=== PATIENT | female | born 1975 | race Caucasian/White ===

== ENCOUNTER → 2016-09-07 | Outpatient (REF) | payer BC ==
[2016-09-07 13:44] LABS: PERCENT SATURATION 9.2 % (13.2-37.4)
== END ==
LOC: M LAB REF 12:33
PROVIDERS: ATTEND Internal Medicine Medical Oncology
DX: C81.90 Hodgkin lymphoma, unspecified, unspecified site (principal)

== ENCOUNTER → 2017-02-25 | Outpatient (CLI) | payer BC ==
[2017-02-25 18:29] LABS: ALBUMIN 3.1 GM/DL (3.2-5.2); ALBUMIN/GLOBULIN RATIO 0.74 (1.00-1.93); ALKALINE PHOSPHATASE 95 U/L (45-117); ALT/SGPT 18 U/L (12-78); ANION GAP 7 MEQ/L (8-16); AST/SGOT 11 U/L (7-37); BILIRUBIN,TOTAL 0.5 MG/DL (0.2-1.0); BLOOD UREA NITROGEN 14 MG/DL (7-18); CALCIUM LEVEL 8.4 MG/DL (8.5-10.1); CARBON DIOXIDE LEVEL 26 MEQ/L (21-32); CHLORIDE LEVEL 104 MEQ/L (98-107); CHOLESTEROL LEVEL 208 MG/DL (<200); CREATININE FOR GFR 0.88 MG/DL (0.55-1.02); GLOMERULAR FILTRATION RATE > 60.0 (>58); GLUCOSE, FASTING 83 MG/DL (70-105); POTASSIUM SERUM 4.4 MEQ/L (3.5-5.1); SODIUM LEVEL 137 MEQ/L (136-145); TOTAL PROTEIN 7.3 GM/DL (6.4-8.2); TRIGLYCERIDES LEVEL 193 MG/DL (<150)
== END ==
LOC: M SMT 11:29
PROVIDERS: ATTEND Family Medicine
DX: Z00.00 Encounter for general adult medical examination without abnormal findings (principal); E03.9 Hypothyroidism, unspecified; E78.00 Pure hypercholesterolemia, unspecified

== ENCOUNTER → 2017-03-07 | Outpatient (REF) | payer BC | LOC: M SFHCWAGY 08:47 | PROVIDERS: ATTEND Nurse Practitioner Women's Health | DX: Z12.4 Encounter for screening for malignant neoplasm of cervix (principal) ==

== ENCOUNTER → 2017-03-07 | Outpatient (CLI) | payer BC ==
--- NOTE | 2017-03-07 10:15 | REPMRS ---
Patient History The patient states she had a clinical breast exam in 02/2017. Patient had previous chest radiation therapy at age 29, has history of other cancer at age 29, had previous chemotherapy at age 29, and had first child at age 30. Family history of prostate cancer in father at age 50 or over, breast cancer in paternal aunt at age 50 or over, and breast cancer in maternal grandmother at age 50 or over. Digital Woman Screen Mammo: March 07, 2017 - Exam #: [id number] Bilateral CC and MLO view(s) were taken. Technologist: Chrissy Oshea, Technologist Prior study comparison: March 04, 2016, digital woman screen mammo performed at [facility]. March 06, 2015, digital woman screen mammo performed at [facility]. FINDINGS: There are scattered fibroglandular densities. There has been no change in the appearance of the mammogram from the prior studies. There is a mild amount of residual fibroglandular tissue which is fairly symmetric. There is no interval development of dominant mass, architectural distortion, or clustered microcalcification suggestive of malignancy. ASSESSMENT: BI-RADS/ACR category 1 mammogram. Negative. Recommendation Routine screening mammogram in 1 year (for women over age 40). This mammogram was interpreted with the aid of an FDA-approved computer-aided dectection system. Electronically Signed By: Philip Escalante MD 03/07/17 1014
== END ==
LOC: M WHC 08:51
PROVIDERS: ATTEND Nurse Practitioner Women's Health
DX: Z12.31 Encounter for screening mammogram for malignant neoplasm of breast (principal)

== ENCOUNTER → 2017-04-07 | Outpatient (REF) | payer BC ==
[2017-04-07 13:59] LABS: PERCENT SATURATION 9.7 % (13.2-45.0)
== END ==
LOC: M LAB REF 13:16
PROVIDERS: ATTEND Internal Medicine Medical Oncology
DX: C81.99 Hodgkin lymphoma, unspecified, extranodal and solid organ sites (principal); D50.9 Iron deficiency anemia, unspecified

== ENCOUNTER → 2017-10-20 | Outpatient (REF) | payer BC ==
[2017-10-20 17:16] LABS: FERRITIN 12 NG/ML (8-252); IRON (FE) 51 UG/DL (50-170); PERCENT SATURATION 14.1 % (13.2-45.0); TOTAL IRON BINDING CAPACITY 362 UG/DL (250-450)
== END ==
LOC: M LAB REF 16:24
DX: D50.9 Iron deficiency anemia, unspecified (principal)
CPT/HCPCS: 83550

== ENCOUNTER → 2017-12-31 | Outpatient (CLI) | payer BC ==
[2017-12-31 17:50] LABS: BASO % 0.5 % (0.0-1.0); EOS # 0.2 10^3/uL (0.0-0.50); EOS % 2.4 % (0.0-3.0); HEMOGLOBIN 13.4 g/dl (12.0-15.5); IMMATURE GRANULOCYTE % 0.2 % (0-3.0); LYMPH # 1.9 10^3/uL (1.5-4.5); LYMPH % 30.4 % (24.0-44.0); MEAN CORPUSCULAR HEMOGLOBIN 28.5 pg (27.0-33.0); MEAN CORPUSCULAR HGB CONC 30.5 g/dl (32.0-36.5); MEAN CORPUSCULAR VOLUME 93.4 fl (80.0-96.0); MONO # 0.4 10^3/uL (0.0-0.8); MONO % 6.4 % (0.0-5.0); NEUTROPHILS # 3.8 10^3/uL (1.8-7.7); NEUTROPHILS % 60.1 % (36.0-66.0); PLATELET COUNT, AUTOMATED 101 10^3/uL (150-450); RED BLOOD COUNT 4.71 10^6/uL (4.00-5.40); RED CELL DISTRIBUTION WIDTH 14.7 % (11.5-14.5); WHITE BLOOD COUNT 6.2 10^3/uL (4.0-10.0)
[2017-12-31 18:20] LABS: ALBUMIN 3.2 GM/DL (3.2-5.2); ALBUMIN/GLOBULIN RATIO 0.86 (1.00-1.93); ALKALINE PHOSPHATASE 78 U/L (45-117); ALT/SGPT 22 U/L (12-78); ANION GAP 7 MEQ/L (8-16); AST/SGOT 17 U/L (7-37); BILIRUBIN,TOTAL 0.4 MG/DL (0.2-1.0); BLOOD UREA NITROGEN 12 MG/DL (7-18); CALCIUM LEVEL 8.5 MG/DL (8.5-10.1); CARBON DIOXIDE LEVEL 27 MEQ/L (21-32); CHLORIDE LEVEL 104 MEQ/L (98-107); CHOLESTEROL LEVEL 195 MG/DL (<200); CHOLESTEROL RISK RATIO 5.735 (<5); CREATININE FOR GFR 0.91 MG/DL (0.55-1.30); FREE T4 0.95 NG/DL (0.76-1.46); GLOMERULAR FILTRATION RATE > 60.0 (>58); GLUCOSE, FASTING 99 MG/DL (70-100); HDL CHOLESTEROL 34 MG/DL (>40); LDL CHOLESTEROL 102 MG/DL (<100); NON-HDL-C 161 MG/DL; POTASSIUM SERUM 4.7 MEQ/L (3.5-5.1); SODIUM LEVEL 138 MEQ/L (136-145); TOTAL PROTEIN 6.9 GM/DL (6.4-8.2); TRIGLYCERIDES LEVEL 293 MG/DL (<150)
[2018-01-02 09:30] LABS: TOTAL 25(OH) VITAMIN D 44.5 NG/ML (30.0-100.0)
== END ==
LOC: M WUC 09:21
DX: E03.9 Hypothyroidism, unspecified (principal); E78.00 Pure hypercholesterolemia, unspecified; D50.8 Other iron deficiency anemias; E55.9 Vitamin D deficiency, unspecified
CPT/HCPCS: 84443

== ENCOUNTER → 2018-03-13 | Outpatient (CLI) | payer BC | LOC: M WHC 08:03 | DX: Z12.31 Encounter for screening mammogram for malignant neoplasm of breast (principal) | CPT/HCPCS: 77067 ==

== ENCOUNTER → 2018-05-22 | Outpatient (CLI) | payer BC ==
[~2018-05-22] MED LIST: FERR1TAB8 PO; FLUO20CA8 PO; LEVO88TA3 PO; RANI1SYP PO
[2018-05-22 13:51] LABS: BASO # 0.1 10^3/uL (0.0-0.2); BASO % 0.6 % (0.0-1.0); EOS # 0.2 10^3/uL (0.0-0.50); EOS % 2.6 % (0.0-3.0); HEMATOCRIT 43.8 % (36.0-47.0); HEMOGLOBIN 14.1 g/dl (12.0-15.5); LYMPH # 2.1 10^3/uL (1.5-4.5); LYMPH % 26.6 % (24.0-44.0); MEAN CORPUSCULAR HGB CONC 32.2 g/dl (32.0-36.5); MEAN CORPUSCULAR VOLUME 90.1 fl (80.0-96.0); MONO # 0.5 10^3/uL (0.0-0.8); MONO % 5.9 % (0.0-5.0); NEUTROPHILS # 5.1 10^3/uL (1.8-7.7); NEUTROPHILS % 63.8 % (36.0-66.0); PLATELET COUNT, AUTOMATED 283 10^3/uL (150-450); RED BLOOD COUNT 4.86 10^6/uL (4.00-5.40)
[2018-05-22 14:02] LABS: ALBUMIN 3.6 GM/DL (3.2-5.2); ALT/SGPT 31 U/L (12-78); BILIRUBIN,TOTAL 0.3 MG/DL (0.2-1.0); BLOOD UREA NITROGEN 13 MG/DL (7-18); CALCIUM LEVEL 9.1 MG/DL (8.5-10.1); CARBON DIOXIDE LEVEL 28 MEQ/L (21-32); CHLORIDE LEVEL 102 MEQ/L (98-107); FERRITIN 37 NG/ML (8-252); GLOMERULAR FILTRATION RATE > 60.0 (>58); GLUCOSE, FASTING 108 MG/DL (70-100); IRON (FE) 49 UG/DL (50-170); PERCENT SATURATION 13.6 % (13.2-45.0); POTASSIUM SERUM 4.4 MEQ/L (3.5-5.1); SODIUM LEVEL 137 MEQ/L (136-145); TOTAL IRON BINDING CAPACITY 359 UG/DL (250-450); TOTAL PROTEIN 7.6 GM/DL (6.4-8.2)
== END ==
LOC: M SMT 07:53
PROVIDERS: ATTEND Internal Medicine Medical Oncology
DX: Z85.71 Personal history of Hodgkin lymphoma (principal); D50.0 Iron deficiency anemia secondary to blood loss (chronic)

== ENCOUNTER → 2018-09-13 | Outpatient (CLI) | payer BC ==
[~2018-09-13] MED LIST changes: +PROHANCE 279.3MG/ML 15ML VIAL (A9576) As Ordered ONE; +PROHANCE 279.3MG/ML 5ML VIAL (A9576) As Ordered ONE
== END ==
LOC: M RAD 08:46
PROVIDERS: ATTEND Nurse Practitioner Women's Health
DX: Z12.31 Encounter for screening mammogram for malignant neoplasm of breast (principal); Z80.3 Family history of malignant neoplasm of breast; Z53.29 Procedure and treatment not carried out because of patient's decision for other reasons
CPT/HCPCS: A9576 ×2

== ENCOUNTER 2019-01-19 21:53 | Emergency (ER) | payer BC ==
[~2019-01-19] VITALS: Ht 167.6 cm; Wt 122.7 kg
[~2019-01-19 21:53] MED LIST changes: +FERR150C PO; -PROHANCE 279.3MG/ML 15ML VIAL (A9576) As Ordered ONE; -PROHANCE 279.3MG/ML 5ML VIAL (A9576) As Ordered ONE
[2019-01-19] MEDS ORDERED: IBUP200T50 PO (22:01)
[2019-01-19] MEDS ORDERED: ACET-861 PO (22:01)
[2019-01-19 22:36] VITALS: BP 165/86
[2019-01-19] MEDS ORDERED: CLINDAMYCIN 150 MG CAP PO ONE (23:00)
[2019-01-19] MEDS ORDERED: CLEO300C2 PO (23:01)
== END 2019-01-19 23:11 | disposition home or self-care (01) ==
LOC: M ED 21:53
DX: K04.7 Periapical abscess without sinus (principal); K02.9 Dental caries, unspecified; H92.02 Otalgia, left ear; F17.210 Nicotine dependence, cigarettes, uncomplicated; D86.9 Sarcoidosis, unspecified; E03.9 Hypothyroidism, unspecified; Z88.0 Allergy status to penicillin; Z88.6 Allergy status to analgesic agent; Z88.8 Allergy status to other drugs, medicaments and biological substances; Z91.018 Allergy to other foods; Z79.899 Other long term (current) drug therapy

== ENCOUNTER 2019-01-21 20:27 | Emergency (ER) | payer BC ==
[~2019-01-21] VITALS: Ht 167.6 cm; Wt 124.0 kg
[~2019-01-21 20:27] MED LIST changes: +ACET-861 PO; +CLEO300C2 PO; +IBUP200T50 PO
[2019-01-21 21:20] LABS: HEMATOCRIT 41.3 % (36.0-47.0); HEMOGLOBIN 13.4 g/dl (12.0-15.5); MEAN CORPUSCULAR HEMOGLOBIN 29.3 pg (27.0-33.0); MEAN CORPUSCULAR HGB CONC 32.4 g/dl (32.0-36.5); MEAN CORPUSCULAR VOLUME 90.4 fl (80.0-96.0); PLATELET COUNT, AUTOMATED 291 10^3/uL (150-450); RED BLOOD COUNT 4.57 10^6/uL (4.00-5.40); WHITE BLOOD COUNT 11.7 10^3/uL (4.0-10.0)
[2019-01-21 21:38] LABS: BLOOD UREA NITROGEN 8 MG/DL (7-18); CALCIUM LEVEL 8.9 MG/DL (8.5-10.1); CARBON DIOXIDE LEVEL 28 MEQ/L (21-32); CHLORIDE LEVEL 104 MEQ/L (98-107); CREATININE FOR GFR 0.98 MG/DL (0.55-1.30); GLOMERULAR FILTRATION RATE > 60.0 (>58); GLUCOSE, FASTING 92 MG/DL (70-100); POTASSIUM SERUM 3.6 MEQ/L (3.5-5.1); SODIUM LEVEL 138 MEQ/L (136-145)
[2019-01-21] MEDS ORDERED: NS 1,000 ML IV ONE (22:15)
[2019-01-21] MEDS ORDERED: ISOVUE-370 76% 100ML VIAL (Q9967) As Ordered ONE (22:54)
--- NOTE | 2019-01-21 23:20 | REPVR ---
PROCEDURE INFORMATION: Exam: CT Neck With Contrast Exam date and time: 01/21/2019 10:57 PM Clinical history: 43 years old, female; Other: Swelling; Additional info: Left facial swelling, on abx dental infection, worsening TECHNIQUE: Imaging protocol: Computed tomography images of the neck with intravenous contrast. Radiation optimization: All CT scans at this facility use at least one of these dose optimization techniques: automated exposure control; mA and/or kV adjustment per patient size (includes targeted exams where dose is matched to clinical indication); or iterative reconstruction. Contrast material: ISO 370; Contrast volume: 75 ml; Contrast route: IV; COMPARISON: No relevant prior studies available. FINDINGS: Nasopharynx: Unremarkable. Oropharynx: Unremarkable. No significant tonsillar enlargement. Hypopharynx: Unremarkable Larynx: Unremarkable. Normal epiglottis. Retropharyngeal space: Unremarkable. Submandibular/Parotid glands: Normal. Glands are normal in size. Thyroid: Normal. No enlarged or calcified nodules. Lymph nodes: Mildly enlarged left submandibular lymph node demonstrating a fatty hilum consistent with benignity measures 11 mm. Trachea: Visualized trachea is unremarkable. Lungs: Unremarkable as visualized. Bones/joints: Unremarkable. No acute fracture. Soft tissues: Soft tissue edema adjacent to the left hemimandible. Findings may be secondary to infection possibly dental origin. IMPRESSION: Soft tissue edema adjacent to the left hemimandible. Findings may be secondary to infection possibly dental origin. Electronically signed by: David Sung On 01/21/2019 23:20:05 PM
[2019-01-21] MEDS ORDERED: CLINDAMYCIN 150 MG CAP PO ONE (23:45)
[2019-01-21] MEDS ORDERED: PRED20TA PO (23:45)
[2019-01-21] MEDS ORDERED: methylPREDNISolone INJ 125 MG/2 ML VIAL (J2930) IV ONE (23:45)
[2019-01-21 23:56] VITALS: BP 136/83
[2019-01-22] MEDS ORDERED: NYSTATIN 500,000 U/5 ML SUSP UDC PO STA (00:18)
[2019-01-22] MEDS ORDERED: NYST50SS SS (00:22)
== END 2019-01-22 00:34 | disposition home or self-care (01) ==
LOC: M ED 20:27
DX: K12.2 Cellulitis and abscess of mouth (principal); Z85.71 Personal history of Hodgkin lymphoma; Z87.09 Personal history of other diseases of the respiratory system; Z79.2 Long term (current) use of antibiotics; Z79.1 Long term (current) use of non-steroidal anti-inflammatories (NSAID); Z79.899 Other long term (current) drug therapy; Z88.0 Allergy status to penicillin; Z88.1 Allergy status to other antibiotic agents; Z88.5 Allergy status to narcotic agent; Z88.8 Allergy status to other drugs, medicaments and biological substances; Z91.018 Allergy to other foods
CPT/HCPCS: 70491; 80047; 80048; 84702; 85027; 87040; 96374; 99284; J2930; Q9967

== ENCOUNTER → 2019-03-14 | Outpatient (CLI) | payer BC ==
[~2019-03-14] MED LIST changes: +NYST50SS SS; +PRED20TA PO
--- NOTE | 2019-03-14 09:04 | REPMRS ---
Patient History The patient states she has not had a clinical breast exam in over a year. Patient had previous chest radiation therapy at age 29, has history of other cancer at age 29, had previous chemotherapy at age 29, and had first child at age 30. Family history of breast cancer at age 50 or over in maternal grandmother, prostate cancer at age 50 or over in father, breast cancer at age 50 or over in paternal aunt. 3D TOMOSYNTHESIS WAS PERFORMED. Digital Mammo Screening Bilat: March 14, 2019 - Exam #: [id number] Bilateral CC and MLO view(s) were taken. Technologist: Allison Steele, Technologist Prior study comparison: March 13, 2018, bilateral digital woman screen mammo, performed at [facility], [place]. March 07, 2017, digital woman screen mammo, performed at [facility]. FINDINGS: There are scattered fibroglandular densities. There has been no change in the appearance of the mammogram from the prior studies. There is a mild amount of residual fibroglandular tissue which is fairly symmetric. There is no interval development of dominant mass, architectural distortion, or clustered microcalcification suggestive of malignancy. Assessment: BI-RADS/ACR category 1 mammogram. Negative Mammogram. Recommendation Routine screening mammogram in 1 year (for women over age 40). This mammogram was interpreted with the aid of an FDA-approved computer-aided dectection system. THE LIFETIME RISK OF BREAST CANCER IS 24.0%, THEREFORE SUPPLEMENTAL SCREENING MRI OF THE BREASTS IS RECOMMENDED IN 6 MONTHS. Electronically Signed By: Philip Escalante MD 03/14/19 0903
== END ==
LOC: M RAD 07:35
PROVIDERS: ATTEND Nurse Practitioner Women's Health
DX: Z12.31 Encounter for screening mammogram for malignant neoplasm of breast (principal); Z85.9 Personal history of malignant neoplasm, unspecified; Z92.21 Personal history of antineoplastic chemotherapy; Z80.3 Family history of malignant neoplasm of breast

== ENCOUNTER → 2019-03-14 | Outpatient (CLI) | payer BC ==
[2019-03-14 12:45] LABS: FREE T4 1.05 NG/DL (0.76-1.46); THYROID STIMULATING HORMONE 2.14 uIU/ML (0.358-3.740)
== END ==
LOC: M PLALAB 08:19
PROVIDERS: ATTEND Family Medicine
DX: E03.9 Hypothyroidism, unspecified (principal)

== ENCOUNTER 2019-04-08 16:33 | Emergency (ER) | payer BC ==
[~2019-04-08] VITALS: Ht 167.6 cm; Wt 122.7 kg
[~2019-04-08 16:33] MED LIST changes: +FLUO20CA20 PO; -FLUO20CA8 PO
[2019-04-08] MEDS ORDERED: LEVO100T5 PO (16:57)
[2019-04-08] MEDS ORDERED: RANI150C PO (16:57)
[2019-04-08 17:55] LABS: BASO # 0.1 10^3/uL (0.0-0.2); BASO % 0.6 % (0.0-1.0); EOS # 0.1 10^3/uL (0.0-0.5); EOS % 1.2 % (0.0-3.0); HEMATOCRIT 50.7 % (36.0-47.0); HEMOGLOBIN 16.2 g/dl (12.0-15.5); LYMPH # 2.1 10^3/uL (1.5-5.0); MEAN CORPUSCULAR HEMOGLOBIN 27.8 pg (27.0-33.0); MONO # 0.4 10^3/uL (0.0-0.8); MONO % 4.6 % (0.0-5.0); NEUTROPHILS # 6.9 10^3/uL (1.5-8.5); NEUTROPHILS % 71.3 % (36.0-66.0); PLATELET COUNT, AUTOMATED 273 10^3/uL (150-450); RED BLOOD COUNT 5.83 10^6/uL (4.00-5.40); WHITE BLOOD COUNT 9.7 10^3/uL (4.0-10.0)
[2019-04-08 18:06] LABS: INR 0.96; PROTHROMBIN TIME 12.5 SECONDS (11.8-14.0)
[2019-04-08 18:07] LABS: PARTIAL THROMBOPLASTIN TIME 28.5 SECONDS (25.0-38.4)
[2019-04-08 18:26] LABS: ALBUMIN 3.1 GM/DL (3.2-5.2); ALT/SGPT 38 U/L (12-78); BILIRUBIN,DIRECT 0.3 MG/DL (0.0-0.2); BILIRUBIN,TOTAL 0.9 MG/DL (0.2-1.0); BLOOD UREA NITROGEN 8 MG/DL (7-18); CALCIUM LEVEL 8.9 MG/DL (8.5-10.1); CARBON DIOXIDE LEVEL 22 MEQ/L (21-32); CHLORIDE LEVEL 104 MEQ/L (98-107); CK-MB VALUE MASS < 1.0 NG/ML (<3.6); CPK CREATINE PHOSPHOKINASE 131 U/L (26-192); CREATININE FOR GFR 0.92 MG/DL (0.55-1.30); FREE T4 1.02 NG/DL (0.76-1.46); GLOMERULAR FILTRATION RATE > 60.0 (>58); GLUCOSE, FASTING 92 MG/DL (70-100); MAGNESIUM LEVEL 1.9 MG/DL (1.8-2.4); MB/CK RELATIVE INDEX 0.76 (< OR =4); PHOSPHORUS LEVEL 2.3 MG/DL (2.5-4.9); POTASSIUM SERUM 4.5 MEQ/L (3.5-5.1); SODIUM LEVEL 136 MEQ/L (136-145); TOTAL PROTEIN 7.4 GM/DL (6.4-8.2); TROPONIN I < 0.02 NG/ML (< 0.10)
[2019-04-08] MEDS ORDERED: NEUTRA-PHOS 1.5 GM PACKET PO ONE (18:45)
[2019-04-08 19:04] VITALS: BP 127/60
--- NOTE | 2019-04-09 07:49 | REP ---
Clinical: Chest pain and palpitations . Comparison: 01/02/2013 . Technique: PA and lateral. Findings: The mediastinum and cardiac silhouette are normal. The lung kearney are clear and without acute consolidation, effusion, or pneumothorax. The skeletal structures are intact and normal. Impression: 1. No acute cardiopulmonary process. Electronically Signed by Michael Alvarez MD 04/09/2019 07:41 A
--- NOTE | 2019-04-09 08:35 | ECGEPIP ---
[facility] - ED Test Date: 2019-04-08 Pat Name: ORI OLMSTEAD Department: Room: - Gender: Female [employer]: ct : 1975 Requested By: KEVIN SALMERON Order Number: [id number] Reading MD: Ziyad Perales Measurements Intervals [place] Rate: 102 P: 64 TN: 156 QRS: -36 QRSD: 106 T: 90 QT: 361 QTc: 471 Interpretive Statements SINUS TACHYCARDIA WITH FREQUENT VENTRICULAR PREMATURE COMPLEXES LEFT AXIS DEVIATION VOLTAGE CRITERIA FOR LVH POOR R WAVE PROGRESSION NO PRIORS FOR COMPARISON Electronically Signed on 04-09-2019 8:35:26 EST by Ziyad Perales
== END 2019-04-08 19:09 | disposition home or self-care (01) ==
LOC: M ED 16:33
DX: I49.3 Ventricular premature depolarization (principal); R00.2 Palpitations; R00.0 Tachycardia, unspecified; D86.9 Sarcoidosis, unspecified; D64.9 Anemia, unspecified; K21.9 Gastro-esophageal reflux disease without esophagitis; F41.9 Anxiety disorder, unspecified; E55.9 Vitamin D deficiency, unspecified; Z85.71 Personal history of Hodgkin lymphoma; F17.210 Nicotine dependence, cigarettes, uncomplicated; Z88.6 Allergy status to analgesic agent; Z88.0 Allergy status to penicillin; Z88.1 Allergy status to other antibiotic agents; Z88.5 Allergy status to narcotic agent; Z88.8 Allergy status to other drugs, medicaments and biological substances; Z91.018 Allergy to other foods; Z79.52 Long term (current) use of systemic steroids; Z79.899 Other long term (current) drug therapy

== ENCOUNTER → 2020-02-23 | Outpatient (REF) | payer BC ==
[~2020-02-23] MED LIST changes: +IBUP-1428 PO; -IBUP200T50 PO; +LEVO100T5 PO; +RANI150C PO
== END ==
LOC: M LAB REF 19:08
PROVIDERS: ATTEND Nurse Practitioner Family
DX: J02.9 Acute pharyngitis, unspecified (principal)

== ENCOUNTER → 2020-03-31 | Outpatient (REF) | payer BC | LOC: M SFHCWAGY 10:37 | PROVIDERS: ATTEND Nurse Practitioner Women's Health | DX: Z12.4 Encounter for screening for malignant neoplasm of cervix (principal); Z01.419 Encounter for gynecological examination (general) (routine) without abnormal findings ==

== ENCOUNTER → 2020-05-19 | Outpatient (REF) | payer BC ==
[2020-05-19 13:37] LABS: FERRITIN 48 NG/ML (8-252); IRON (FE) 54 UG/DL (50-170)
== END ==
LOC: M LAB REF 12:31
PROVIDERS: ATTEND Family Medicine
DX: D50.8 Other iron deficiency anemias (principal)

== ENCOUNTER → 2020-06-16 | Outpatient (REF) | LOC: M LABSMTC 10:07 | PROVIDERS: ATTEND Pediatrics | DX: Z11.52 Encounter for screening for COVID-19 (principal) ==

== ENCOUNTER → 2020-07-18 | Outpatient (CLI) | payer BC ==
--- NOTE | 2020-07-18 17:18 | REP ---
INDICATION: Z12.39 BREAST CANCER SCREENING,HIGH RISK PATIENT. COMPARISON: Mammogram 03/31/2020. TECHNIQUE: Real-time sonographic evaluation of bilateral breasts performed. FINDINGS: No discrete cystic or solid nodule is seen in any portion of the bilateral breasts. Nonenlarged axillary lymph nodes are present, demonstrating normal short axis dimensions. IMPRESSION: BIRADS/ACR category 1, negative bilateral whole breast ultrasound. No discrete cystic or solid nodule seen in either breast. RECOMMENDATION: Clinical follow-up. <Electronically signed by Philip Escalante > 07/18/20 0416
== END ==
LOC: M WHC 08:26
PROVIDERS: ATTEND Surgery
DX: Z12.39 Encounter for other screening for malignant neoplasm of breast (principal)

== ENCOUNTER → 2020-07-31 | Outpatient (CLI) | payer BC ==
--- NOTE | 2020-08-01 07:48 | REP ---
INDICATION: N93.9 ABNORMAL UTERINE BLEEDING COMPARISON: None. TECHNIQUE: Transabdominal pelvic ultrasound followed by transvaginal examination for better evaluation of the endometrium and adnexa. FINDINGS: Bladder is unremarkable and measures 12.7 x 6.0 x 8.7 cm. Anteverted uterus measures 10.6 x 4.7 x 4.8 cm and includes 2.0 x 1.4 x 1.4 cm posterior submucosal fibroid and 1.1 x 1.2 x 1.0 cm posterior intramural fibroid. The endometrial complex measures 12.4 mm thickness with a 17.6 x 8.4 mm echogenic focus suggesting polyp. Right ovary was not visualized on either transabdominal or transvaginal imaging. The left ovary appears normal and measures 2.4 x 1.9 x 2.8 cm. Tubular structure in the left adnexa may represent focal hydrosalpinx. IMPRESSION: Myomatous uterus with suspected endometrial polyp. Right ovary not visualized. Possible left hydrosalpinx. <Electronically signed by Michael Alvarez > 08/01/20 0734
== END ==
LOC: M WHC 14:22
PROVIDERS: ATTEND Nurse Practitioner Women's Health
DX: N93.9 Abnormal uterine and vaginal bleeding, unspecified (principal); D25.9 Leiomyoma of uterus, unspecified

== ENCOUNTER 2020-09-26 19:03 | Emergency (ER) | payer BC ==
[~2020-09-26] VITALS: Ht 167.6 cm; Wt 125.7 kg
[2020-09-26] MEDS ORDERED: VITA50005 PO (19:12)
[2020-09-26] MEDS ORDERED: VITA500045 PO (19:12)
[2020-09-26] MEDS ORDERED: MAGN250T22 PO (19:12)
[2020-09-26] MEDS ORDERED: CLIN150C15 PO (19:12)
[2020-09-26] MEDS ORDERED: DIPH25CA32 PO (19:12)
[2020-09-26] MEDS ORDERED: IBUP1TAB5 PO (19:13)
[2020-09-26 22:53] VITALS: BP 135/84
== END 2020-09-26 23:00 | disposition home or self-care (01) ==
LOC: M ED 19:03
DX: J02.9 Acute pharyngitis, unspecified (principal); H92.01 Otalgia, right ear; F41.9 Anxiety disorder, unspecified; E03.9 Hypothyroidism, unspecified; K21.9 Gastro-esophageal reflux disease without esophagitis; D86.9 Sarcoidosis, unspecified; F17.200 Nicotine dependence, unspecified, uncomplicated; Z88.1 Allergy status to other antibiotic agents; Z88.6 Allergy status to analgesic agent; Z79.899 Other long term (current) drug therapy; Z88.8 Allergy status to other drugs, medicaments and biological substances

== ENCOUNTER → 2020-11-12 | Outpatient (CLI) | payer BC ==
[~2020-11-12] MED LIST changes: +CLIN150C15 PO; +DIPH25CA32 PO; +ERGO500029 PO; +IBUP1TAB5 PO; +MAGN250T22 PO; +VITA500045 PO
[2020-11-12 16:00] LABS: FREE T4 1.05 NG/DL (0.76-1.46); LUTEINIZING HORMONE 36.3 mIU/mL; THYROID STIMULATING HORMONE 1.27 uIU/ML (0.358-3.740)
== END ==
LOC: M PLALAB 13:52
PROVIDERS: ATTEND Obstetrics & Gynecology
DX: N92.6 Irregular menstruation, unspecified (principal)

== ENCOUNTER → 2020-11-12 | Outpatient (REF) | payer BC | LOC: M PLALAB 13:34 | PROVIDERS: ATTEND Obstetrics & Gynecology | DX: Z53.9 Procedure and treatment not carried out, unspecified reason (principal) ==

== ENCOUNTER → 2020-12-03 | Outpatient (REF) | payer BC ==
[~2020-12-03] MED LIST changes: -CLIN150C15 PO; +CLIN150C17 PO
== END ==
LOC: M SFHCWAGY 19:18
PROVIDERS: ATTEND Obstetrics & Gynecology
DX: N92.6 Irregular menstruation, unspecified (principal)

== ENCOUNTER → 2020-12-03 | Outpatient (REF) | payer BC | LOC: M PLALAB 14:29 | PROVIDERS: ATTEND Obstetrics & Gynecology | DX: N92.6 Irregular menstruation, unspecified (principal) ==

== ENCOUNTER → 2021-01-01 | Outpatient (REF) | payer BC | LOC: M LAB REF 16:22 | PROVIDERS: ATTEND Physician Assistant | DX: R05 Cough (principal); R51.9 Headache, unspecified ==

== ENCOUNTER → 2021-03-05 | Outpatient (REF) | payer BC | LOC: M LAB REF 16:29 | PROVIDERS: ATTEND Family Medicine | DX: D50.8 Other iron deficiency anemias (principal) ==

== ENCOUNTER → 2021-09-09 | Outpatient (REF) | payer BC ==
[~2021-09-09] MED LIST changes: +FLUO-96 PO; -FLUO20CA20 PO
== END ==
LOC: M LAB REF 10:21
PROVIDERS: ATTEND Family Medicine
DX: D50.8 Other iron deficiency anemias (principal)

== ENCOUNTER → 2021-12-25 | Outpatient (CLI) | payer BC | LOC: M WHC 14:03 | PROVIDERS: ATTEND Nurse Practitioner Women's Health | DX: Z12.31 Encounter for screening mammogram for malignant neoplasm of breast (principal); Z91.89 Other specified personal risk factors, not elsewhere classified; Z85.71 Personal history of Hodgkin lymphoma; Z92.21 Personal history of antineoplastic chemotherapy; Z23 Encounter for immunization ==

== ENCOUNTER → 2022-02-15 | Outpatient (REF) | payer BC | LOC: M PLALAB 10:29 | PROVIDERS: ATTEND Nurse Practitioner Family | DX: Z12.4 Encounter for screening for malignant neoplasm of cervix (principal) | CPT/HCPCS: 87624; G0123 ==

== ENCOUNTER → 2022-09-27 | Outpatient (REF) | payer BC ==
[~2022-09-27] MED LIST changes: +DIPH-435 PO; -DIPH25CA32 PO; +NYST-38 SS; -NYST50SS SS
== END ==
LOC: M LAB REF 12:13
PROVIDERS: ATTEND Family Medicine
DX: D50.8 Other iron deficiency anemias (principal)

== ENCOUNTER → 2022-12-10 | Outpatient (CLI) | payer BC | LOC: M RAD 14:09 | PROVIDERS: ATTEND Physician Assistant | DX: R09.89 Other specified symptoms and signs involving the circulatory and respiratory systems (principal) ==

== ENCOUNTER → 2022-12-27 | Outpatient (CLI) | payer BC | LOC: M WHC 12:12 | PROVIDERS: ATTEND Nurse Practitioner Women's Health | DX: Z91.89 Other specified personal risk factors, not elsewhere classified (principal); Z80.3 Family history of malignant neoplasm of breast; Z92.3 Personal history of irradiation ==

== ENCOUNTER → 2023-03-02 | Outpatient (REF) | payer BC | LOC: M SFHCWAGY 13:15 | PROVIDERS: ATTEND Nurse Practitioner Family | DX: Z12.4 Encounter for screening for malignant neoplasm of cervix (principal) ==

== ENCOUNTER → 2023-12-09 | Outpatient (REF) | payer BC | LOC: M LAB REF 12:14 | PROVIDERS: ATTEND Family Medicine | DX: D50.8 Other iron deficiency anemias (principal) ==

== ENCOUNTER → 2024-12-28 | Outpatient (CLI) | payer OTHER ==
[~2024-12-28] MED LIST changes: +ERGO125013 PO; -VITA500045 PO
== END ==
LOC: M WHC 07:07
PROVIDERS: ATTEND Nurse Practitioner Family
DX: D25.1 Intramural leiomyoma of uterus (principal)

== ENCOUNTER → 2025-04-01 | Outpatient (CLI) | payer OTHER | LOC: M CARPUL 13:14 | PROVIDERS: ATTEND Family Medicine | DX: R01.1 Cardiac murmur, unspecified (principal) ==